=== PATIENT | male | born 1990 | race Caucasian/White ===

== ENCOUNTER 2017-07-07 01:53 | Inpatient (IN) | payer MEDICAID, OTHER ==
[~2017-07-07] VITALS: Ht 167.6 cm; Wt 70.0 kg
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
[2017-07-07] MEDS ORDERED: Benzocaine-Menthol Lozenge 2/Pkg PO PRN (06:10)
[2017-07-07] MEDS ORDERED: Alum-Mag Hydrox-Simeth 30 mL Suspension PO PRN (06:10)
[2017-07-07] MEDS ORDERED: Magnesium Hydroxide 10 mL Oral Concentration PO PRN (06:10)
[2017-07-07 13:50] LABS: BASOPHILS % (AUTO) 0.4 % (0-3); EOSINOPHILS % (AUTO) 5.5 % (0-5); MONOCYTES % (AUTO) 8.7 % (4-12); Mean Corpuscular Hemoglobin 30.3 pg (27.0-35.0); Mean Corpuscular Volume 88.7 fL (81-100); NEUTROPHILS % (AUTO) 47.2 % (40-74); Platelet Count 267 bil/L (150-400)
--- NOTE | 2017-07-07 13:53 | NUR ---
Nursing Note [id number] Behavior S/O: Pt has been in room asleep most of the day. Pt ate all of lunch, but no breakfast. Pt evaluated by psychiatrist this afternoon. Pt making nonsensical statements. Pleasant upon approach. A: Pt displaying psychotic sx. P: Provide supportive environment. Monitor medications & effects.
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
--- NOTE | 2017-07-07 18:47 | NUR ---
[facility] Day Shift Pt maintained behavioral control throughout the shift. Pt affect appears flat, preoccupied. Pt spends most of the AM resting/sleeping in his room. Pt more active on the unit in the late afternoon/evening. Pt appears grandiose and delusional. Pt makes bizarre statements when active on the unit and occasionally appears intrusive with staff and peers. Pt does not appear interested in participating in unit activities. Pt did not attend breakfast. Pt attended lunch and dinner and ate approx 100% of all meals.
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
[2017-07-07] MEDS: OLANZapine Zydis ODT 5 mg Tablet PO SCH (20:43)
--- NOTE | 2017-07-07 22:11 | NUR ---
Observations 1900 to 0700 Pt ate a snack. Pt spent evening resting in room. During snack time pt is observed talking to himself with grandiose ideas. I am an expert of diabetes. Pt maintained behavioral. Pt appeared asleep at 2200. Pt respirations were observed when asleep. Staff completed 15 min close observations as ordered.
--- NOTE | 2017-07-08 03:21 | NUR ---
Nursing Noc Pt out to common area, flirtatious with other female patients. Appears grandiose in behavior, and responding to internal stimuli. q15 minute safety checks as prescribed BH, monitoring mood, behavior, emotional state and sleep times. Noted to be asleep at [id number] then again at 0115 and through the rest of the night.
[2017-07-08 11:41] VITALS: BP 133/83; PULSE 83; RESP 16
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
--- NOTE | 2017-07-08 14:17 | NUR ---
Nursing Note [id number] Behavior S/O: Pt has been in room most of the day. He comes out for meals & short periods of time. Pt is pleasant & cooperative with staff & peers. Minimal conversation. Poor eye contact. Pt requested Motrin & Tylenol for tooth pain. He said he felt like "ripping the arms out of people for shooting my cat....It's a special kind of cat." Conversation tracking tangential. A: Pt remains delusional. P: Provide supportive environment. Monitor medications & effects.
[2017-07-08] MEDS: OLANZapine Zydis ODT 5 mg Tablet PO PRN (18:06)
[2017-07-08] MEDS: Zolpidem 5 mg Tablet for FEMALE or >65YO PO PRN (20:13)
[2017-07-08] MEDS: OLANZapine Zydis ODT 5 mg Tablet PO SCH (20:14)
--- NOTE | 2017-07-08 21:39 | NUR ---
OBSERVATIONS 0900 TO 2130 Pt pleasant and cooperative with staff, social and appropriate with peers. Pt was active and participatory, pt showered and changed into fresh scrubs. Pt made a few comments that did not make sense and expressed delusions but was otherwise oriented and making sense. Pt was bothered by another pt on multiple occasions but handled the situation very well each time attempting to remove himself from the situation. Maintained Q15 checks for safety as directed.
[2017-07-08] MEDS: LORazepam 1 mg Tablet PO PRN (22:19)
--- NOTE | 2017-07-08 22:58 | NUR ---
NURSING NOTE [id number] Mood: "okay" Affect: calm, cooperative, pleasant upon approach Behavior: pt visible off and on in milieu, requested PRN for tooth pain (given Tylenol 650 mg for 7/10 pain). Pt. also received PRN Ambien 5 mg at HS, later came out requesting anxiety PRN and c/o night terrors and was given 2 mg Ativan at 22:20. Med compliant. Thought processes: pt. denies SI/HI/AH/VH. Still expressing some delusional and disjointed thought content; e.g when asked to rate his anxiety on a number scale he began speaking about a "commanding officer" and "bearing arms".
--- NOTE | 2017-07-09 01:33 | NUR ---
Observations 1900 to 0700 Pt ate a snack. Pt spent free time resting in bed and only came out for snack but was social with staff and peers at that point. Pt is pleasant but does appear internally preoccupied. Pt maintained behavioral control. Pt appeared asleep at 2130 and has remained asleep. Pt respirations were observed when asleep. Staff completed 15 min close observations as ordered.
[2017-07-09] MEDS: LORazepam 1 mg Tablet PO PRN ×3 (04:12→18:29)
--- NOTE | 2017-07-09 05:57 | NUR ---
Nursing [id number] pt asleep since shift started at 2300 and has remained asleep til end of shift. Q 15min checks in place for safety.
[2017-07-09] MEDS: OLANZapine Zydis ODT 5 mg Tablet PO PRN ×2 (09:01→16:08)
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
--- NOTE | 2017-07-09 15:12 | NUR ---
Nursing Note [id number] Behavior S/O: Pt having difficulty communicating in a meaningful cohesive manner. Pt requested Zyprexa Zydis this am-given with good effect. Pt has been in room most of the day except for meals. Pleasant & cooperative. Poor eye contact. Flat affect. A: Pt appears to be paranoid. P: Provide supportive environment. Monitor medications & effects.
[2017-07-09] MEDS: OLANZapine Zydis ODT 5 mg Tablet PO SCH (22:02)
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
--- NOTE | 2017-07-10 05:22 | NUR ---
Nursing Note Fiberglass Dowel Drawing Operator 11pm to 7am Pt asleep at start of shift and slept through the night uninterrupted. Monitored pt q 15 minutes for safety, location and accountability
[2017-07-10] MEDS: OLANZapine Zydis ODT 5 mg Tablet PO PRN ×2 (08:57→18:31)
[2017-07-10 09:00] VITALS: BP 121/72; PULSE 100
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
--- NOTE | 2017-07-10 15:49 | NUR ---
Can Top Setter/Counselor S:" Are those cherries?" O: Patient denies any Si or HI, no AVH, no anxiety and depression rated at 3. A: Patient is cooperative, unkept, disheveled, garbled speech, disorganized, psychotic, poor insight, poor judgment. Patient could not remember where he has previously received treatment, but stated it was at a [facility] outpatient center. P: Follow care plan and coordinate with outpatient providers.
--- NOTE | 2017-07-10 16:17 | NUR ---
Nursing Day Shift: S: "Can we watch [employer]?" O: Patient has been in the public areas of the unit much of today. Has watched TV most of that time. Eating well at meals. Social with staff and peers. Comical at times. A: Cooperative. Animated. P: CPOC. Monitor mood and behavior.
--- NOTE | 2017-07-10 20:45 | NUR ---
Obs Dayshift Pt is polite, engaging well w/ staff and peers. Pt is out in the milieu, calm, good eye contact, slightly pressured and rambling. Pt participates well in games or w/ peers playing cards and watching TV. Went outside on the patio, and encouraging toward peers. Calm, appropriate. Good ADL's, Good meals
[2017-07-10] MEDS: OLANZapine Zydis ODT 5 mg Tablet PO SCH (21:10)
[2017-07-10] MEDS: LORazepam 1 mg Tablet PO PRN (23:20)
[2017-07-11] MEDS: Zolpidem 5 mg Tablet for FEMALE or >65YO PO PRN (00:52)
[2017-07-11] MEDS: OLANZapine Zydis ODT 5 mg Tablet PO PRN (06:06)
--- NOTE | 2017-07-11 06:28 | NUR ---
Nursing Note Content Coordinator 7pm-7am Patient out in common area watching a movie and having snack. Denies harmful thoughts and hallucinations. Denies anxiety; reports some depression. Patient was given prn Ativan 1 mg at 2320 and Ambien 5 mg at 0052. Intermittently awake throughout the night. Noted to be asleep from [id number], from [id number]; and from [id number]. At 0607 patient was given Zyprexa 5 mg for complaints of night terrors. Pt monitored q 15 minutes for safety, location and accountability.
[2017-07-11] MEDS ORDERED: OLAN10TA3 PO (11:45)
--- NOTE | 2017-07-11 11:48 | PCM.DIMED ---
Discharge Instructions Date of Service Jul 11, 2017 Dates of Hospitalization Jul 07, 2017 at 05:20 Discharge Diagnosis Discharge Diagnosis 1. Bipolar, unspecified, with psychosis. 2. Polysubstance use disorder with alcohol, stimulant, cannabis, and possibly "wet" use disorder. AXIS II. Conduct disorder, rule out antisocial personality disorder. AXIS III. Elevated CPK. Appears to be resolving. AXIS IV. Unknown. AXIS V. Global Assessment of Functioning 40 Diet Discharge Diet: No restrictions Activity Discharge Activity: No restrictions Call your provider Call your provider for: Fever or Chills Patient Instructions Patient Instructions I Strongly encouraged patient to follow up with outpatient care: 1-Recommended patient takes medication as prescribed and not alter this unless under the direct care of a provider. 2-Recommend client refrain from recreational drugs and alcohol while taking psychiatric medications. 3-Recommend client start a 12 step program to deal with issues of addiction. 4-Recommend patient attempt to find a therapist or group to deal with impulse control and interpersonal relationship conflicts Follow-up plan Client's 72 hour involuntary treatment hold was not continued to a 14 day today. We did not intend to discharge him today but he has been released by the court. We are working with him to find transportation to his home in [place]. We are working with him to follow-up [facility] [place] where he is already connected for medication management and ongoing therapy. Follow-up with PCP in: 2 weeks Kashmir Barnett MD Jul 11, 2017 11:48
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
--- NOTE | 2017-07-11 14:08 | NUR ---
Unit Educator/Counselor S:"I'm ready to leave anytime. I can figure it out." O: Patient did not report any SI or HI, no AVH, no anxiety or depression. A: Patient discharged on his own volition, and did not want to wait until transportation or follow up appts. could be arranged. Patient was released from the court to voluntary, and decided to discharge without waiting for any further follow up. P:Follow discharge instructions.
--- NOTE | 2017-07-11 14:29 | NUR ---
Nursing Discharge Note: Patient cooperative with discharge process. Acknowledges understanding of d/c instructions and has a copy with them upon leaving unit at 1310. Belongings accounted for and with patient. Prescriptions faxed to patients pharmacy at [facility] in [place]. Patient denies harmful thoughts and hallucinations at this time. Declined to wait for appropriate transportation home. "I got it. Don't worry." Escorted to the [place] entrance/exit where patient stated he was heading for the bus at the corner.
== END 2017-07-11 13:10 | disposition home or self-care (01) | DRG 885 ==
LOC: MHC 05:20
PROVIDERS: ADMIT Psychiatry & Neurology Psychiatry; ATTEND Psychiatry & Neurology Psychiatry
DX: F31.9 Bipolar disorder, unspecified (principal); F19.10 Other psychoactive substance abuse, uncomplicated; F91.9 Conduct disorder, unspecified